=== PATIENT | male | born 1975 | race Hispanic/Latino ===

== ENCOUNTER 2018-01-19 15:57 | Inpatient (IN) | payer OTHER ==
[~2018-01-19] VITALS: Ht 170.2 cm; Wt 74.8 kg
[~2018-01-19 15:57] MED LIST: AEC81 PO; CYAN10009 PO; FOLI0.8C PO; METF-444 PO
[2018-01-19 16:26] LABS: BASOPHILS % (AUTO) 0.4 % (0.0-5.0); EOSINOPHILS % (AUTO) 1.8 % (0.0-8.0); HEMATOCRIT 42.6 % (42-54); LYMPHOCYTES % (AUTO) 24.6 % (21.0-51.0); MEAN CORPUSCULAR HEMOGLOBIN 31.4 pg (27.0-33.0); MEAN CORPUSCULAR HGB CONC 34.1 g/dL (32.0-36.0); MEAN CORPUSCULAR VOLUME 92.1 fL (79-99); MONOCYTES % (AUTO) 4.4 % (3.0-13.0); NEUTROPHILS % (AUTO) 68.8 % (40.0-77.0); PLATELET COUNT (AUTO) 375 K/uL (130-400); RED BLOOD CELL COUNT(AUTO) 4.63 MIL/uL (4.50-6.20); RED CELL DISTRIBUTION WIDTH 13.6 % (11.0-15.5); WHITE BLOOD COUNT (AUTO) 17.3 K/uL (4.8-10.8)
[2018-01-19 16:36] LABS: CREATININE 1.1 mg/dL (0.5-1.5); POTASSIUM 3.8 mmol/L (3.5-5.1)
[2018-01-19 16:42] LABS: ALBUMIN 4.6 g/dL (3.5-5.0); BILIRUBIN,TOTAL 0.6 mg/dL (0.2-1.0)
[2018-01-19 16:54] LABS: APPEARANCE,URINE Clear (CLEAR); BILIRUBIN,URINE Negative (NEGATIVE); COLOR,URINE Yellow (YELLOW); GLUCOSE, URINE (UA) 500 mg/dL (NEGATIVE); KETONES,URINE Trace mg/dL (NEGATIVE); LEUKOCYTE ESTERASE ,URINE Negative (NEGATIVE); NITRATE,URINE Negative (NEGATIVE); OCCULT BLOOD,URINE Negative (NEGATIVE); PROTEIN,URINE Trace (NEGATIVE)
[2018-01-19 17:02] LABS: AMPHET/METH SCREEN,URINE NEGATIVE (NEGATIVE); BARBITURATE SCREEN, URINE NEGATIVE (NEGATIVE); BENZODIAZEPINES SCREEN,URINE NEGATIVE (NEGATIVE); CANNABINOID SCREEN,URINE NEGATIVE (NEGATIVE); COCAINE SCREEN,URINE NEGATIVE (NEGATIVE); OPIATE SCREEN,URINE NEGATIVE (NEGATIVE); PHENCYCLIDINE SCREEN,URINE NEGATIVE (NEGATIVE)
[2018-01-19 17:03] LABS: BACTERIA,URINE Rare /HPF (None Seen); RBC,URINE 0-1 /HPF (0-1); WBC,URINE 0-1 /HPF (0-1)
[2018-01-19 17:04] LABS: MUCUS,URINE Few LPF (None Seen); SQUAMOUS EPITHELIAL CELL,UR Rare /HPF (0-2)
[2018-01-19] MEDS ORDERED: KETOROLAC TROMETHAMINE 30MG/ML ONE (18:39)
[2018-01-19] MEDS ORDERED: ONDANSETRON HCL 4 MG/2 ML VIAL IV PRN (19:00)
[2018-01-19] MEDS ORDERED: ACETAMINOPHEN 325 MG TAB PO PRN (19:00)
[2018-01-19 19:15] VITALS: BP 127/84
[2018-01-19] MEDS: SODIUM CHLORIDE 0.9% 1000ML 1,000 ML IV SCH (20:11)
[2018-01-19] MEDS: LEVOFLOXACIN 500 MG/D5W 100 ML 100 ML IV SCH (20:12)
[2018-01-19] MEDS: MORPHINE SULFATE 2 MG/ML 1ML SYG IV PRN (20:47)
[2018-01-19] MEDS: FAMOTIDINE/PF 20 MG/2 ML VIAL IV SCH (20:50)
[2018-01-19] MEDS ORDERED: METRONIDAZOLE 500 MG TABLET PO SCH (21:00)
[2018-01-19] MEDS: METRONIDAZOLE 500MG/100ML BAG 100 ML IV SCH (22:16)
[2018-01-19] MEDS ORDERED: DEXTROSE 50%-WATER 50 ML DISP.SYRIN IV PRN (23:15)
[2018-01-19] MEDS ORDERED: GLUCAGON 1MG KIT 1 MG ML IM PRN (23:15)
[2018-01-19 23:50] VITALS: BP 125/82
[2018-01-20] MEDS: MORPHINE SULFATE 2 MG/ML 1ML SYG IV PRN ×3 (01:25→12:35)
[2018-01-20 03:56] VITALS: BP 124/77
[2018-01-20 04:35] LABS: BASOPHILS % (AUTO) 0.4 % (0.0-5.0); EOSINOPHILS % (AUTO) 0.4 % (0.0-8.0); HEMATOCRIT 40.8 % (42-54); MEAN CORPUSCULAR HEMOGLOBIN 31.3 pg (27.0-33.0); MEAN CORPUSCULAR HGB CONC 33.9 g/dL (32.0-36.0); MEAN CORPUSCULAR VOLUME 92.3 fL (79-99); MONOCYTES % (AUTO) 8.2 % (3.0-13.0); PLATELET COUNT (AUTO) 390 K/uL (130-400); RED BLOOD CELL COUNT(AUTO) 4.42 MIL/uL (4.50-6.20); RED CELL DISTRIBUTION WIDTH 13.2 % (11.0-15.5); WHITE BLOOD COUNT (AUTO) 15.1 K/uL (4.8-10.8)
[2018-01-20 04:51] LABS: ALBUMIN 3.7 g/dL (3.5-5.0); BILIRUBIN,TOTAL 0.7 mg/dL (0.2-1.0); CREATININE 0.9 mg/dL (0.5-1.5); POTASSIUM 4.4 mmol/L (3.5-5.1); TOTAL PROTEIN, SERUM 6.9 g/dL (6.0-8.3)
[2018-01-20] MEDS: SODIUM CHLORIDE 0.9% 1000ML 1,000 ML IV SCH ×2 (04:59→08:35)
[2018-01-20] MEDS: METRONIDAZOLE 500MG/100ML BAG 100 ML IV SCH ×3 (05:37→22:31)
[2018-01-20] MEDS: INSULIN HUMULIN R 100 UNIT/ML 3ML SQ SCH ×4 (05:49→17:11)
[2018-01-20 07:30] VITALS: BP 136/86
[2018-01-20] MEDS: FAMOTIDINE/PF 20 MG/2 ML VIAL IV SCH ×2 (08:32→22:30)
[2018-01-20 11:30] VITALS: BP 132/82
[2018-01-20] MEDS: LACTATED RINGERS 1000ML 1,000 ML IV SCH ×3 (12:42→22:33)
[2018-01-20] MEDS: ENOXAPARIN SODIUM 30 MG/0.3 ML SQ SCH (14:17)
[2018-01-20 16:00] VITALS: BP 124/76
[2018-01-20] MEDS: MORPHINE SULFATE 2 MG/ML 1ML SYG IVP PRN (17:04)
[2018-01-20] MEDS: LEVOFLOXACIN 500 MG/D5W 100 ML 100 ML IV SCH (17:50)
[2018-01-20 20:00] VITALS: BP 126/74
[2018-01-21] VITALS: BP 118/75
[2018-01-21] MEDS: MORPHINE SULFATE 2 MG/ML 1ML SYG IVP PRN (00:43)
[2018-01-21 04:00] VITALS: BP 112/67
[2018-01-21] MEDS: LACTATED RINGERS 1000ML 1,000 ML IV SCH ×2 (04:47→12:25)
[2018-01-21] MEDS: METRONIDAZOLE 500MG/100ML BAG 100 ML IV SCH (05:38)
[2018-01-21] MEDS: INSULIN HUMULIN R 100 UNIT/ML 3ML SQ SCH ×3 (05:38→11:32)
[2018-01-21 06:21] LABS: HEMATOCRIT 37.7 % (42-54); MEAN CORPUSCULAR HEMOGLOBIN 31.9 pg (27.0-33.0); MEAN CORPUSCULAR HGB CONC 34.7 g/dL (32.0-36.0); MEAN CORPUSCULAR VOLUME 91.8 fL (79-99); NUCLEATED RED BLOOD CELLS 0.1 % (0.0-0.19); PLATELET COUNT (AUTO) 363 K/uL (130-400); RED BLOOD CELL COUNT(AUTO) 4.11 MIL/uL (4.50-6.20); RED CELL DISTRIBUTION WIDTH 13.1 % (11.0-15.5); WHITE BLOOD COUNT (AUTO) 12.1 K/uL (4.8-10.8)
[2018-01-21 06:31] LABS: CREATININE 0.8 mg/dL (0.5-1.5); POTASSIUM 3.7 mmol/L (3.5-5.1)
[2018-01-21] MEDS: FAMOTIDINE/PF 20 MG/2 ML VIAL IV SCH (07:48)
[2018-01-21] MEDS: ENOXAPARIN SODIUM 30 MG/0.3 ML SQ SCH (07:49)
[2018-01-21] MEDS ORDERED: CEFTRIAXONE SODIUM 1 GM IVP SCH (08:30)
[2018-01-21 08:49] VITALS: BP 108/71
[2018-01-21 12:10] VITALS: BP 128/86
[2018-01-21] MEDS ORDERED: CEFD300C3 PO (12:50)
== END 2018-01-21 15:55 | disposition home or self-care (01) | DRG 391 ==
LOC: EDH 15:57 → EDHIP 18:45 → OBSVTOIN 18:45 → 3DH 19:22
PROVIDERS: ADMIT Hospitalist; ATTEND Hospitalist
DX: K29.00 Acute gastritis without bleeding (principal); K85.90 Acute pancreatitis without necrosis or infection, unspecified; K86.3 Pseudocyst of pancreas; K86.1 Other chronic pancreatitis; E11.9 Type 2 diabetes mellitus without complications; Z90.49 Acquired absence of other specified parts of digestive tract; Z79.84 Long term (current) use of oral hypoglycemic drugs; Z83.3 Family history of diabetes mellitus; Z82.5 Family history of asthma and other chronic lower respiratory diseases; Z82.49 Family history of ischemic heart disease and other diseases of the circulatory system; Z82.3 Family history of stroke; Z82.0 Family history of epilepsy and other diseases of the nervous system
CPT/HCPCS: 36415; 74176; 80048; 80053; 80061; 80305; 81001; 82150; 82550; 82948; 83036; 83605; 83690; 84484; 85025; 85027; 93005; A4218; J0696; J1650; J1885; J1956; J3490; J7030; J7120

== ENCOUNTER 2018-02-20 06:05 | Day surgery (SDC) | payer OTHER ==
[~2018-02-20] VITALS: Ht 172.7 cm; Wt 71.4 kg
[~2018-02-20 06:05] MED LIST changes: -AEC81 PO; +CEFD300C3 PO; -CYAN10009 PO; -FOLI0.8C PO; +SODIUM CHLORIDE 0.9% 1000ML 1,000 ML IV ONE
[2018-02-20 06:54] VITALS: BP 113/69
[2018-02-20 07:03] LABS: AMYLASE 68 U/L (25-115); LIPASE 262 U/L (114-286)
[2018-02-20] MEDS ORDERED: ASPI-555 PO (07:21)
[2018-02-20] MEDS ORDERED: ATOR40TA71 PO (07:21)
[2018-02-20] MEDS ORDERED: PROPOFOL 10 MG/ML 20ML VIAL IV ONE ×3 (08:01→08:24)
[2018-02-20 08:45] VITALS: BP 94/47
[2018-02-20] MEDS ORDERED: CEFAZOLIN SODIUM 1 GM VIAL ONE (08:47)
[2018-02-20 08:50] VITALS: BP 89/45
[2018-02-20 08:55] VITALS: BP 108/66
== END 2018-02-20 09:54 | disposition home or self-care (01) ==
LOC: DAH 06:05
PROVIDERS: ATTEND Internal Medicine Gastroenterology
DX: K29.50 Unspecified chronic gastritis without bleeding (principal); K31.89 Other diseases of stomach and duodenum; K85.90 Acute pancreatitis without necrosis or infection, unspecified; K86.2 Cyst of pancreas; E11.9 Type 2 diabetes mellitus without complications; E78.5 Hyperlipidemia, unspecified; Z90.49 Acquired absence of other specified parts of digestive tract; Z79.84 Long term (current) use of oral hypoglycemic drugs; Z79.899 Other long term (current) drug therapy; Z98.890 Other specified postprocedural states
CPT/HCPCS: 36415; 43239; 43242; 82150; 82378; 82948 ×2; 83690 ×2; A4215; A4606; J0690; J2704 ×3; J7030; 43232

== ENCOUNTER → 2018-06-18 | Outpatient (CLI) | payer OTHER ==
[~2018-06-18] MED LIST changes: +ASPI-555 PO; +ATOR40TA71 PO; +IOHEXOL-350 75 ML VIAL IV ONE; -SODIUM CHLORIDE 0.9% 1000ML 1,000 ML IV ONE
== END | disposition home or self-care (01) ==
LOC: RAH 07:35
PROVIDERS: ATTEND Internal Medicine Gastroenterology
DX: R93.3 Abnormal findings on diagnostic imaging of other parts of digestive tract (principal); R10.13 Epigastric pain; M47.815 Spondylosis without myelopathy or radiculopathy, thoracolumbar region
CPT/HCPCS: 74170; Q9967

== ENCOUNTER → 2018-06-22 | Outpatient (CLI) | payer OTHER ==
[~2018-06-22] MED LIST changes: -IOHEXOL-350 75 ML VIAL IV ONE
[2018-06-22 10:22] LABS: BASOPHILS % (AUTO) 0.8 % (0.0-5.0); EOSINOPHILS % (AUTO) 4.7 % (0.0-8.0); LYMPHOCYTES % (AUTO) 33.6 % (21.0-51.0); MEAN CORPUSCULAR HEMOGLOBIN 31.1 pg (27.0-33.0); MEAN CORPUSCULAR HGB CONC 33.5 g/dL (32.0-36.0); MEAN CORPUSCULAR VOLUME 92.8 fL (79-99); MONOCYTES % (AUTO) 10.1 % (3.0-13.0); NEUTROPHILS % (AUTO) 50.8 % (40.0-77.0); PLATELET COUNT (AUTO) 370 K/uL (130-400); RED BLOOD CELL COUNT(AUTO) 4.63 MIL/uL (4.50-6.20); RED CELL DISTRIBUTION WIDTH 13.5 % (11.0-15.5); WHITE BLOOD COUNT (AUTO) 7.3 K/uL (4.8-10.8)
[2018-06-22 10:35] LABS: ALBUMIN 4.5 g/dL (3.5-5.0); CREATININE 0.9 mg/dL (0.5-1.5); POTASSIUM 4.5 mmol/L (3.5-5.1); TOTAL PROTEIN, SERUM 7.9 g/dL (6.0-8.3)
== END | disposition home or self-care (01) ==
LOC: LAB 09:24
PROVIDERS: ATTEND Physician Assistant Medical
DX: E78.5 Hyperlipidemia, unspecified (principal); K85.90 Acute pancreatitis without necrosis or infection, unspecified
CPT/HCPCS: 36415; 80053; 80061; 82150; 82784; 83690; 85025

== ENCOUNTER 2018-08-19 07:11 | Inpatient (IN) | payer OTHER ==
[~2018-08-19] VITALS: Ht 170.2 cm; Wt 66.7 kg
[2018-08-19] MEDS ORDERED: MORPHINE SULFATE 4 MG/1ML SYG ONE ×2 (08:01→15:49)
[2018-08-19] MEDS ORDERED: ONDANSETRON HCL 4 MG/2 ML VIAL ONE ×2 (08:01→15:48)
[2018-08-19 08:07] LABS: BASOPHILS % (AUTO) 0.4 % (0.0-5.0); EOSINOPHILS % (AUTO) 3.6 % (0.0-8.0); HEMATOCRIT 41.9 % (42-54); LYMPHOCYTES % (AUTO) 23.8 % (21.0-51.0); MEAN CORPUSCULAR HEMOGLOBIN 31.2 pg (27.0-33.0); MEAN CORPUSCULAR HGB CONC 33.4 g/dL (32.0-36.0); MEAN CORPUSCULAR VOLUME 93.5 fL (79-99); MONOCYTES % (AUTO) 4.8 % (3.0-13.0); NEUTROPHILS % (AUTO) 67.4 % (40.0-77.0); NUCLEATED RED BLOOD CELLS 0.1 % (0.0-0.19); PLATELET COUNT (AUTO) 365 K/uL (130-400); RED BLOOD CELL COUNT(AUTO) 4.48 MIL/uL (4.50-6.20); RED CELL DISTRIBUTION WIDTH 13.8 % (11.0-15.5); WHITE BLOOD COUNT (AUTO) 15.1 K/uL (4.8-10.8)
[2018-08-19 08:13] LABS: CREATININE 0.9 mg/dL (0.5-1.5); POTASSIUM 4.9 mmol/L (3.5-5.1)
[2018-08-19 08:19] LABS: ALBUMIN 4.1 g/dL (3.5-5.0); BILIRUBIN,TOTAL 0.4 mg/dL (0.2-1.0); TOTAL PROTEIN, SERUM 7.1 g/dL (6.0-8.3)
[2018-08-19] MEDS ORDERED: SODIUM CHLORIDE 0.9% 1000ML 1,000 ML IV ONE ×2 (08:26→14:56)
[2018-08-19 09:55] LABS: APPEARANCE,URINE Clear (CLEAR); BILIRUBIN,URINE Negative (NEGATIVE); COLOR,URINE Yellow (YELLOW); GLUCOSE, URINE (UA) TRACE mg/dL (NEGATIVE); KETONES,URINE Negative (NEGATIVE); LEUKOCYTE ESTERASE ,URINE Negative (NEGATIVE); NITRATE,URINE Negative (NEGATIVE); OCCULT BLOOD,URINE Negative (NEGATIVE); PH,URINE 5.5 (5.0-8.0); PROTEIN,URINE Negative (NEGATIVE)
[2018-08-19 10:24] LABS: BACTERIA,URINE Rare /HPF (None Seen); MUCUS,URINE Rare LPF (None Seen); RBC,URINE None Seen /HPF (0-1); SQUAMOUS EPITHELIAL CELL,UR Rare /HPF (0-2); WBC,URINE None Seen /HPF (0-1)
[2018-08-19] MEDS: SODIUM CHLORIDE 0.9% 1000ML 1,000 ML IV SCH ×2 (15:00→23:37)
[2018-08-19] MEDS ORDERED: ONDANSETRON HCL 4 MG/2 ML VIAL IVP PRN (15:00)
[2018-08-19] MEDS: ENOXAPARIN SODIUM 40 MG/0.4 ML SYRINGE SQ SCH (15:08)
[2018-08-19] MEDS ORDERED: DiphenhydrAMINE HCL 50 MG/ML VIAL IVP PRN (15:15)
[2018-08-19] MEDS ORDERED: ENOXAPARIN SODIUM 40 MG/0.4 ML SYRINGE SQ ONE (15:48)
[2018-08-19] MEDS: INSULIN HUMULIN R 100 UNIT/ML 3ML SQ SCH ×2 (18:00→23:36)
[2018-08-19 22:52] VITALS: BP 121/71
[2018-08-19 23:16] VITALS: BP 122/74
[2018-08-19] MEDS: FAMOTIDINE/PF 20 MG/2 ML VIAL IV SCH (23:53)
[2018-08-20] MEDS ORDERED: AEC81 PO (00:17)
[2018-08-20] MEDS ORDERED: METF-444 PO ×2 (00:17)
[2018-08-20] MEDS: MORPHINE SULFATE 4 MG/1ML SYG IVP PRN ×2 (00:28→10:38)
[2018-08-20 03:40] VITALS: BP 96/61
[2018-08-20] MEDS: INSULIN HUMULIN R 100 UNIT/ML 3ML SQ SCH ×3 (06:00→18:00)
[2018-08-20 06:47] LABS: HEMATOCRIT 39.7 % (42-54); MEAN CORPUSCULAR HEMOGLOBIN 32.1 pg (27.0-33.0); MEAN CORPUSCULAR HGB CONC 34.1 g/dL (32.0-36.0); NUCLEATED RED BLOOD CELLS 0.1 % (0.0-0.19); PLATELET COUNT (AUTO) 331 K/uL (130-400); RED BLOOD CELL COUNT(AUTO) 4.22 MIL/uL (4.50-6.20); WHITE BLOOD COUNT (AUTO) 9.7 K/uL (4.8-10.8)
[2018-08-20] MEDS: SODIUM CHLORIDE 0.9% 1000ML 1,000 ML IV SCH ×3 (06:48→22:09)
[2018-08-20 07:08] LABS: ALBUMIN 3.5 g/dL (3.5-5.0); BILIRUBIN,TOTAL 0.7 mg/dL (0.2-1.0); CREATININE 0.8 mg/dL (0.5-1.5); POTASSIUM 3.6 mmol/L (3.5-5.1); TOTAL PROTEIN, SERUM 6.3 g/dL (6.0-8.3)
[2018-08-20 07:56] VITALS: BP 106/71
[2018-08-20] MEDS: ENOXAPARIN SODIUM 40 MG/0.4 ML SYRINGE SQ SCH (09:33)
[2018-08-20] MEDS: FAMOTIDINE/PF 20 MG/2 ML VIAL IV SCH ×2 (09:33→22:09)
[2018-08-20 11:29] VITALS: BP 114/67
[2018-08-20 16:00] VITALS: BP 105/64
--- NOTE | 2018-08-20 19:33 | NUR ---
cm note met with patient and states resides at home with spouse and 4 children. , independent and active. 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 has no dme, no provider services. states no dc needs. dc plan is back to home. Addendum: 08/20/18 at 1934 by ALDO PECK CM Amended: Links added.
[2018-08-20] MEDS ORDERED: GLUCAGON 1MG KIT 1 MG ML IM PRN (19:45)
[2018-08-20] MEDS ORDERED: DEXTROSE 50%-WATER 50 ML DISP.SYRIN IV PRN (19:45)
[2018-08-20 20:00] VITALS: BP 105/61
[2018-08-21] VITALS: BP 94/56
[2018-08-21 04:00] VITALS: BP 106/67
[2018-08-21 05:16] LABS: BASOPHILS % (AUTO) 0.8 % (0.0-5.0); EOSINOPHILS % (AUTO) 5.5 % (0.0-8.0); HEMATOCRIT 38.9 % (42-54); LYMPHOCYTES % (AUTO) 32.1 % (21.0-51.0); MEAN CORPUSCULAR HEMOGLOBIN 31.6 pg (27.0-33.0); MEAN CORPUSCULAR HGB CONC 33.9 g/dL (32.0-36.0); MEAN CORPUSCULAR VOLUME 93.2 fL (79-99); MONOCYTES % (AUTO) 7.2 % (3.0-13.0); NEUTROPHILS % (AUTO) 54.4 % (40.0-77.0); PLATELET COUNT (AUTO) 378 K/uL (130-400); RED BLOOD CELL COUNT(AUTO) 4.18 MIL/uL (4.50-6.20); RED CELL DISTRIBUTION WIDTH 13.7 % (11.0-15.5); WHITE BLOOD COUNT (AUTO) 8.6 K/uL (4.8-10.8)
[2018-08-21 05:34] LABS: CREATININE 0.8 mg/dL (0.5-1.5); POTASSIUM 4.1 mmol/L (3.5-5.1)
[2018-08-21] MEDS: INSULIN HUMULIN R 100 UNIT/ML 3ML SQ SCH ×5 (06:00→20:47)
[2018-08-21] MEDS: SODIUM CHLORIDE 0.9% 1000ML 1,000 ML IV SCH ×2 (06:36→15:47)
[2018-08-21 08:00] VITALS: BP 122/76
[2018-08-21] MEDS: FAMOTIDINE/PF 20 MG/2 ML VIAL IV SCH ×2 (10:10→20:47)
[2018-08-21] MEDS: ENOXAPARIN SODIUM 40 MG/0.4 ML SYRINGE SQ SCH (10:11)
[2018-08-21 11:38] VITALS: BP 122/71
--- NOTE | 2018-08-21 12:39 | NUR ---
re; bs of 54, as per salvage worker chicas start pt on clear liquids.
[2018-08-21] MEDS ORDERED: PHARMACY COMMUNICATION MISC SCH (15:00)
[2018-08-21 15:44] VITALS: BP 121/77
--- NOTE | 2018-08-21 16:31 | NUR ---
Diet education RD Notification for Diet education regarding Pancreatitis diet. RD reviewed Dietary recommendations for Pancreatitis and Diabetes, however Pt denies need as he has received in the past. Pt admits to having enchiladas with a lot of cheese that caused acute pancreatitis episode. Pt however with request for information for gaining weight as he has had weight loss from diet modification of cutting out certain foods from diet. RD provided and reviewed High Calorie foods education materials. Pt verbalized understanding. Pt encouraged to notify as questions and concerns arise. Addendum: 08/21/18 at [address] RD Amended: Links added.
[2018-08-21 20:00] VITALS: BP 122/78
[2018-08-22] VITALS: BP 109/61
[2018-08-22 04:00] VITALS: BP 115/70
[2018-08-22 04:50] LABS: HEMATOCRIT 39.2 % (42-54); MEAN CORPUSCULAR HGB CONC 34.3 g/dL (32.0-36.0); NUCLEATED RED BLOOD CELLS 0.1 % (0.0-0.19); PLATELET COUNT (AUTO) 335 K/uL (130-400); RED BLOOD CELL COUNT(AUTO) 4.22 MIL/uL (4.50-6.20); RED CELL DISTRIBUTION WIDTH 13.7 % (11.0-15.5)
[2018-08-22 04:58] LABS: CREATININE 0.8 mg/dL (0.5-1.5); POTASSIUM 4.2 mmol/L (3.5-5.1)
[2018-08-22] MEDS: INSULIN HUMULIN R 100 UNIT/ML 3ML SQ SCH ×2 (05:34→11:30)
[2018-08-22] MEDS: SODIUM CHLORIDE 0.9% 1000ML 1,000 ML IV SCH (05:34)
[2018-08-22 07:30] VITALS: BP 116/74
[2018-08-22] MEDS: FAMOTIDINE/PF 20 MG/2 ML VIAL IV SCH (08:56)
[2018-08-22] MEDS: ENOXAPARIN SODIUM 40 MG/0.4 ML SYRINGE SQ SCH (08:56)
[2018-08-22 11:00] VITALS: BP 117/76
--- NOTE | 2018-08-22 14:10 | NUR ---
INSTRUCTIONS DISCHARGE INSTRUCTIONS GIVEN TO PATIENT USING TEACH BACK. IV TO LEFT FOREARM REMOVED WITH TIP INTACT. DIRECT PRESSURE APPLIED UNTIL BLEEDING CONTROLLED THEN SITE COVERED WITH GAUZE AND SECURED WITH TAPE. F/U APPOINTMENT MADE. NO NEW PRESCRIPTIONS. NO QUESTIONS OR CONCERNS VOICED. PENDING RIDE HOME.
== END 2018-08-22 14:40 | disposition home or self-care (01) | DRG 440 ==
LOC: EDH 07:11 → EDHIP 13:42 → 3DH 22:37
PROVIDERS: ADMIT Family Medicine; ATTEND Family Medicine
DX: K85.90 Acute pancreatitis without necrosis or infection, unspecified (principal); E11.9 Type 2 diabetes mellitus without complications; E78.00 Pure hypercholesterolemia, unspecified; Z90.49 Acquired absence of other specified parts of digestive tract; Z90.81 Acquired absence of spleen; Z82.3 Family history of stroke; Z82.0 Family history of epilepsy and other diseases of the nervous system; Z83.3 Family history of diabetes mellitus; Z82.5 Family history of asthma and other chronic lower respiratory diseases; Z82.49 Family history of ischemic heart disease and other diseases of the circulatory system
CPT/HCPCS: 36415; 80048; 80053; 80061; 81001; 82150; 82948; 83690; 85025; 85027; 93005; G0378; J1650; J2270; J2405; J3490; J7030; J7070

== ENCOUNTER → 2018-10-26 | Outpatient (CLI) | payer OTHER ==
[~2018-10-26] MED LIST changes: +AEC81 PO; -ASPI-555 PO; -CEFD300C3 PO
[2018-10-26 10:14] LABS: BASOPHILS % (AUTO) 1.1 % (0.0-5.0); EOSINOPHILS % (AUTO) 5.9 % (0.0-8.0); LYMPHOCYTES % (AUTO) 41.8 % (21.0-51.0); MEAN CORPUSCULAR HEMOGLOBIN 31.7 pg (27.0-33.0); MEAN CORPUSCULAR HGB CONC 33.3 g/dL (32.0-36.0); MEAN CORPUSCULAR VOLUME 95.2 fL (79-99); MONOCYTES % (AUTO) 9.4 % (3.0-13.0); NEUTROPHILS % (AUTO) 41.8 % (40.0-77.0); PLATELET COUNT (AUTO) 340 K/uL (130-400); RED BLOOD CELL COUNT(AUTO) 4.52 MIL/uL (4.50-6.20); RED CELL DISTRIBUTION WIDTH 13.2 % (11.0-15.5); WHITE BLOOD COUNT (AUTO) 7.1 K/uL (4.8-10.8)
[2018-10-26 10:26] LABS: ALBUMIN 4.2 g/dL (3.5-5.0); BILIRUBIN,TOTAL 0.7 mg/dL (0.2-1.0); CREATININE 0.9 mg/dL (0.5-1.5); POTASSIUM 4.4 mmol/L (3.5-5.1); TOTAL PROTEIN, SERUM 7.4 g/dL (6.0-8.3)
== END | disposition home or self-care (01) ==
LOC: LAB 09:50
PROVIDERS: ATTEND Internal Medicine
DX: K85.90 Acute pancreatitis without necrosis or infection, unspecified (principal)
CPT/HCPCS: 36415; 80053; 82150; 82784; 83690; 85025

== ENCOUNTER → 2018-11-20 | Outpatient (CLI) | payer OTHER ==
[~2018-11-20] MED LIST changes: +GADODIAMIDE 10 MMOL/20 ML VIAL IV ONE
== END | disposition home or self-care (01) ==
LOC: RAH 08:38
PROVIDERS: ATTEND Internal Medicine
DX: K86.2 Cyst of pancreas (principal); Z90.49 Acquired absence of other specified parts of digestive tract
CPT/HCPCS: 74183; A9579

== ENCOUNTER 2018-12-17 17:17 | Inpatient (IN) | payer OTHER ==
[~2018-12-17] VITALS: Ht 170.2 cm; Wt 70.3 kg
[~2018-12-17 17:17] MED LIST changes: -GADODIAMIDE 10 MMOL/20 ML VIAL IV ONE
[2018-12-17] MEDS ORDERED: ONDANSETRON HCL 4 MG/2 ML VIAL ONE (17:38)
[2018-12-17 17:58] LABS: BASOPHILS % (AUTO) 0.3 % (0.0-5.0); EOSINOPHILS % (AUTO) 2.4 % (0.0-8.0); LYMPHOCYTES % (AUTO) 18.6 % (21.0-51.0); MEAN CORPUSCULAR HEMOGLOBIN 31.9 pg (27.0-33.0); MEAN CORPUSCULAR HGB CONC 33.8 g/dL (32.0-36.0); MEAN CORPUSCULAR VOLUME 94.4 fL (79-99); MONOCYTES % (AUTO) 4.9 % (3.0-13.0); NEUTROPHILS % (AUTO) 73.8 % (40.0-77.0); NUCLEATED RED BLOOD CELLS 0.1 % (0.0-0.19); PLATELET COUNT (AUTO) 362 K/uL (130-400); RED BLOOD CELL COUNT(AUTO) 4.45 MIL/uL (4.50-6.20); RED CELL DISTRIBUTION WIDTH 13.3 % (11.0-15.5); WHITE BLOOD COUNT (AUTO) 18.2 K/uL (4.8-10.8)
[2018-12-17 18:09] LABS: CREATININE 1.1 mg/dL (0.5-1.5); POTASSIUM 4.2 mmol/L (3.5-5.1)
[2018-12-17 18:14] LABS: ALBUMIN 4.5 g/dL (3.5-5.0); BILIRUBIN,TOTAL 0.4 mg/dL (0.2-1.0); TOTAL PROTEIN, SERUM 7.6 g/dL (6.0-8.3)
[2018-12-17] MEDS ORDERED: FAMOTIDINE/PF 20 MG/2 ML VIAL IV ONE (18:59)
[2018-12-17] MEDS ORDERED: KETOROLAC TROMETHAMINE 30MG/ML ONE (18:59)
[2018-12-17] MEDS ORDERED: SODIUM CHLORIDE 0.9% 1000ML 1,000 ML IV ONE (19:00)
[2018-12-17] MEDS ORDERED: ZOSYN 3.375GM+NS 50ML 50 ML IV ONE (21:13)
[2018-12-18] MEDS ORDERED: SODIUM CHLORIDE 0.9% 1000ML 1,000 ML IV ONE (00:19)
[2018-12-18] MEDS ORDERED: MORPHINE SULFATE 4 MG/1ML SYG ONE ×2 (00:21→08:31)
[2018-12-18 02:55] VITALS: BP 147/92
[2018-12-18] MEDS: MORPHINE SULFATE 5 MG/ML VIAL IVP PRN ×2 (04:35→08:33)
[2018-12-18 04:52] LABS: HEMATOCRIT 39.6 % (42-54); MEAN CORPUSCULAR HEMOGLOBIN 32.3 pg (27.0-33.0); MEAN CORPUSCULAR HGB CONC 34.3 g/dL (32.0-36.0); MEAN CORPUSCULAR VOLUME 94.3 fL (79-99); NUCLEATED RED BLOOD CELLS 0.1 % (0.0-0.19); PLATELET COUNT (AUTO) 331 K/uL (130-400); RED CELL DISTRIBUTION WIDTH 13.3 % (11.0-15.5)
[2018-12-18 04:54] LABS: ALBUMIN 3.6 g/dL (3.5-5.0); BILIRUBIN,TOTAL 0.8 mg/dL (0.2-1.0); CREATININE 0.9 mg/dL (0.5-1.5); POTASSIUM 4.5 mmol/L (3.5-5.1); TOTAL PROTEIN, SERUM 6.5 g/dL (6.0-8.3)
[2018-12-18 04:58] LABS: BAND NEUTROPHILS % (MANUAL) 1 % (0-2); BASOPHILS % (MANUAL) 1 % (0-2); LYMPHOCYTES % (MANUAL) 13 % (22-44); MONOCYTES % (MANUAL) 2 % (2-9); SEGMENTED NEUTROPHILS % 83 % (40-70)
[2018-12-18 04:59] LABS: MAN.DIFF COMMENT-IMPRESSION MANUAL DIFFERENTIAL
[2018-12-18 05:00] LABS: PLATELET MORPHOLOGY COMMENT ADEQUATE
[2018-12-18 07:30] VITALS: BP 143/94
[2018-12-18] MEDS: SODIUM CHLORIDE 0.9% 1000ML 1,000 ML IV SCH ×3 (08:00→21:52)
[2018-12-18] MEDS: ZOSYN 3.375GM+NS 50ML 50 ML IV SCH ×3 (08:38→21:52)
[2018-12-18 11:00] VITALS: BP 128/79
[2018-12-18 12:24] LABS: CHOLESTEROL 111 mg/dL (<200); HDL CHOLESTEROL 96 mg/dL (29-71); LDL DIRECT 54 mg/dL (0-99); TRIGLYCERIDES 52 mg/dL (30-200)
[2018-12-18 16:00] VITALS: BP 133/79
--- NOTE | 2018-12-18 17:07 | NUR ---
INITIAL MET W PT AND SPOUSE, PT IS INDP, EMPLOYED, YOUNG , NO DME, DM X 4 YEARS, MULTIPLE BOUTS OF PANCREATITIS, SPOUSE & PATIENT FRUSTRATED; OFFERED DM MANAGEMENT CLINIC INFO ([facility]) BUT PT AND SPOUSE DECLINED, STATES THEIR MD HELPS MANAGE THE SUGARS. WILL REVISIT, NO DC NEEDS Addendum: 12/19/18 at 0853 by MITCH KATZ RN CM Amended: Links added.
[2018-12-18] MEDS ORDERED: ONDANSETRON HCL 4 MG/2 ML VIAL IVP PRN (18:45)
[2018-12-18] MEDS ORDERED: ACETAMINOPHEN 650 MG SUPPOSITORY RC PRN (18:45)
[2018-12-18] MEDS ORDERED: ACETAMINOPHEN 120 MG SUPPOSITORY RC PRN (18:45)
[2018-12-18 20:00] VITALS: BP 122/78
[2018-12-18] MEDS ORDERED: MORPHINE SULFATE 2 MG/ML 1ML SYG IM PRN (20:45)
[2018-12-18] MEDS: FAMOTIDINE/PF 20 MG/2 ML VIAL IV SCH (21:52)
[2018-12-19] VITALS: BP 112/76
[2018-12-19 04:00] VITALS: BP 110/72
[2018-12-19] MEDS: SODIUM CHLORIDE 0.9% 1000ML 1,000 ML IV SCH ×3 (04:10→15:05)
[2018-12-19 06:14] LABS: HEMATOCRIT 39.1 % (42-54); MEAN CORPUSCULAR HEMOGLOBIN 32.3 pg (27.0-33.0); MEAN CORPUSCULAR HGB CONC 34.1 g/dL (32.0-36.0); MEAN CORPUSCULAR VOLUME 94.9 fL (79-99); PLATELET COUNT (AUTO) 337 K/uL (130-400); RED BLOOD CELL COUNT(AUTO) 4.12 MIL/uL (4.50-6.20); RED CELL DISTRIBUTION WIDTH 13.5 % (11.0-15.5); WHITE BLOOD COUNT (AUTO) 10.4 K/uL (4.8-10.8)
[2018-12-19] MEDS: ZOSYN 3.375GM+NS 50ML 50 ML IV SCH ×3 (06:20→22:50)
[2018-12-19 06:31] LABS: ALBUMIN 3.3 g/dL (3.5-5.0); BILIRUBIN,TOTAL 1.1 mg/dL (0.2-1.0); CREATININE 0.9 mg/dL (0.5-1.5); POTASSIUM 3.7 mmol/L (3.5-5.1); TOTAL PROTEIN, SERUM 6.1 g/dL (6.0-8.3)
[2018-12-19 07:46] VITALS: BP 113/70
[2018-12-19] MEDS: FAMOTIDINE/PF 20 MG/2 ML VIAL IV SCH ×2 (09:11→20:14)
[2018-12-19 11:00] VITALS: BP 124/75
[2018-12-19 16:00] VITALS: BP 132/80
[2018-12-19 19:52] VITALS: BP 115/76
[2018-12-19 21:29] LABS: APPEARANCE,URINE Clear (CLEAR); BILIRUBIN,URINE Negative (NEGATIVE); COLOR,URINE Yellow (YELLOW); GLUCOSE, URINE (UA) Negative (NEGATIVE); KETONES,URINE Negative (NEGATIVE); LEUKOCYTE ESTERASE ,URINE Negative (NEGATIVE); NITRATE,URINE Negative (NEGATIVE); OCCULT BLOOD,URINE Negative (NEGATIVE); PROTEIN,URINE Negative (NEGATIVE)
[2018-12-19 21:37] LABS: AMPHET/METH SCREEN,URINE NEGATIVE (NEGATIVE); BARBITURATE SCREEN, URINE NEGATIVE (NEGATIVE); BENZODIAZEPINES SCREEN,URINE NEGATIVE (NEGATIVE); CANNABINOID SCREEN,URINE NEGATIVE (NEGATIVE); COCAINE SCREEN,URINE NEGATIVE (NEGATIVE); OPIATE SCREEN,URINE NEGATIVE (NEGATIVE); PHENCYCLIDINE SCREEN,URINE NEGATIVE (NEGATIVE)
[2018-12-20 00:21] VITALS: BP 106/61
[2018-12-20 03:50] VITALS: BP 102/60
[2018-12-20 05:34] LABS: BASOPHILS % (AUTO) 0.9 % (0.0-5.0); EOSINOPHILS % (AUTO) 7.8 % (0.0-8.0); HEMATOCRIT 36.4 % (42-54); LYMPHOCYTES % (AUTO) 36.9 % (21.0-51.0); MEAN CORPUSCULAR HEMOGLOBIN 32.5 pg (27.0-33.0); MEAN CORPUSCULAR HGB CONC 34.7 g/dL (32.0-36.0); MEAN CORPUSCULAR VOLUME 93.7 fL (79-99); MONOCYTES % (AUTO) 11.7 % (3.0-13.0); NEUTROPHILS % (AUTO) 42.7 % (40.0-77.0); PLATELET COUNT (AUTO) 307 K/uL (130-400); RED BLOOD CELL COUNT(AUTO) 3.88 MIL/uL (4.50-6.20); RED CELL DISTRIBUTION WIDTH 13.7 % (11.0-15.5)
[2018-12-20 06:02] LABS: MAGNESIUM 1.8 mg/dL (1.80-2.40); PHOSPHORUS 3.8 mg/dL (2.5-4.9); POTASSIUM 3.7 mmol/L (3.5-5.1)
[2018-12-20] MEDS: ZOSYN 3.375GM+NS 50ML 50 ML IV SCH ×2 (06:47→14:00)
[2018-12-20] MEDS: SODIUM CHLORIDE 0.9% 1000ML 1,000 ML IV SCH ×2 (06:48→12:55)
[2018-12-20 07:30] VITALS: BP 119/76
[2018-12-20] MEDS: FAMOTIDINE/PF 20 MG/2 ML VIAL IV SCH (09:04)
[2018-12-20 11:00] VITALS: BP 119/69
[2018-12-20 11:41] LABS: AMYLASE 63 U/L (25-115); LIPASE 196 U/L (114-286)
== END 2018-12-20 16:05 | disposition home or self-care (01) | DRG 440 ==
LOC: EDH 17:17 → EDHIP 21:00 → OBSVTOIN 21:00 → 4CH 12-18 02:01
PROVIDERS: ADMIT Internal Medicine Pulmonary Disease; ATTEND Internal Medicine Pulmonary Disease
DX: K85.90 Acute pancreatitis without necrosis or infection, unspecified (principal); K86.1 Other chronic pancreatitis; Z90.81 Acquired absence of spleen; Z90.49 Acquired absence of other specified parts of digestive tract
CPT/HCPCS: 36415; 71045; 74176; 74181; 76700; 80048; 80053; 80061; 80305; 81003; 82150; 82550; 82948; 83690; 83735; 84100; 84484; 85025; 85027; 93005; G0378; J1885; J2270; J2405; J2543; J3490; J7030

== ENCOUNTER 2019-08-14 18:45 | Inpatient (IN) | payer OTHER ==
[~2019-08-14] VITALS: Ht 170.2 cm; Wt 74.9 kg
[~2019-08-14 18:45] MED LIST changes: -AEC81 PO
[2019-08-14] MEDS ORDERED: SODIUM CHLORIDE 0.9% 1000ML 1,000 ML IV ONE (18:55)
[2019-08-14] MEDS ORDERED: ONDANSETRON HCL 4 MG/2 ML VIAL ONE (18:55)
[2019-08-14] MEDS ORDERED: MORPHINE SULFATE 5 MG/ML VIAL ONE (18:55)
[2019-08-14] MEDS ORDERED: HYDROMORPHONE 1 MG/1 ML AMP ONE (19:21)
[2019-08-14 19:23] LABS: BASOPHILS % (AUTO) 0.6 % (0.0-5.0); EOSINOPHILS % (AUTO) 4.7 % (0.0-8.0); HEMATOCRIT 41.3 % (42-54); LYMPHOCYTES % (AUTO) 51.4 % (21.0-51.0); MEAN CORPUSCULAR HEMOGLOBIN 31.7 pg (27.0-33.0); MEAN CORPUSCULAR HGB CONC 34.9 g/dL (32.0-36.0); MONOCYTES % (AUTO) 7.2 % (3.0-13.0); NEUTROPHILS % (AUTO) 35.8 % (40.0-77.0); PLATELET COUNT (AUTO) 392 K/uL (130-400); RED BLOOD CELL COUNT(AUTO) 4.54 MIL/uL (4.50-6.20); RED CELL DISTRIBUTION WIDTH 12.6 % (11.0-15.5); WHITE BLOOD COUNT (AUTO) 14.6 K/uL (4.8-10.8)
[2019-08-14 19:51] LABS: CREATININE 1.5 mg/dL (0.5-1.5); POTASSIUM 3.2 mmol/L (3.5-5.1)
[2019-08-14 20:00] LABS: ALBUMIN 4.6 g/dL (3.5-5.0); BILIRUBIN,TOTAL 0.3 mg/dL (0.2-1.0); TOTAL PROTEIN, SERUM 7.7 g/dL (6.0-8.3)
[2019-08-14] MEDS: SODIUM CHLORIDE 0.9% 1000ML 1,000 ML IV SCH (21:24)
[2019-08-14] MEDS ORDERED: ACETAMINOPHEN 325 MG TAB PO PRN (21:30)
[2019-08-14] MEDS ORDERED: LACTULOSE 20 GM/30 ML UDCUP PO PRN (21:30)
[2019-08-14] MEDS ORDERED: LIDOCAINE HCL-MPF 1% 2ML VIAL IV PRN (21:30)
[2019-08-14] MEDS ORDERED: MORPHINE SULFATE 4 MG/1ML SYG ONE (21:47)
[2019-08-14 21:55] LABS: HEMOGLOBIN A1C 6.8 % (4.0-6.0)
[2019-08-14 22:05] LABS: CHOLESTEROL 144 mg/dL (<200); HDL CHOLESTEROL 93 mg/dL (29-71); LDL DIRECT 83 mg/dL (0-99); TRIGLYCERIDES 171 mg/dL (30-200)
[2019-08-15] MEDS ORDERED: LIDOCAINE HCL-MPF 1% 2ML VIAL ONE (00:30)
[2019-08-15] MEDS ORDERED: POTASSIUM CHLORIDE 20MEQ/100ML 100 ML IV ONE (00:30)
[2019-08-15] MEDS ORDERED: HYDROMORPHONE 1 MG/1 ML AMP ONE ×2 (01:13→05:13)
[2019-08-15 02:40] LABS: APPEARANCE,URINE Clear (CLEAR); BILIRUBIN,URINE Negative (NEGATIVE); COLOR,URINE Yellow (YELLOW); GLUCOSE, URINE (UA) >=1000 mg/dL (NEGATIVE); KETONES,URINE 40 mg/dL (NEGATIVE); LEUKOCYTE ESTERASE ,URINE Negative (NEGATIVE); NITRATE,URINE Negative (NEGATIVE); OCCULT BLOOD,URINE Negative (NEGATIVE); PROTEIN,URINE Negative (NEGATIVE)
[2019-08-15 02:53] LABS: BACTERIA,URINE Rare /HPF (None Seen); RBC,URINE 0-1 /HPF (0-1); WBC,URINE 0-1 /HPF (0-1)
[2019-08-15 02:54] LABS: MUCUS,URINE Rare LPF (None Seen); SQUAMOUS EPITHELIAL CELL,UR 0-2 /HPF (0-2)
[2019-08-15] MEDS ORDERED: MORPHINE SULFATE 4 MG/1ML SYG ONE (03:21)
[2019-08-15 04:41] LABS: BASOPHILS % (AUTO) 0.2 % (0.0-5.0); HEMATOCRIT 42.9 % (42-54); MEAN CORPUSCULAR HEMOGLOBIN 31.2 pg (27.0-33.0); MEAN CORPUSCULAR VOLUME 91.7 fL (79-99); MONOCYTES % (AUTO) 3.4 % (3.0-13.0); PLATELET COUNT (AUTO) 274 K/uL (130-400); RED BLOOD CELL COUNT(AUTO) 4.68 MIL/uL (4.50-6.20); WHITE BLOOD COUNT (AUTO) 17.8 K/uL (4.8-10.8)
[2019-08-15 04:57] LABS: CREATININE 0.9 mg/dL (0.5-1.5); POTASSIUM 4.4 mmol/L (3.5-5.1)
[2019-08-15] MEDS: SODIUM CHLORIDE 0.9% 1000ML 1,000 ML IV SCH ×3 (05:24→16:59)
--- NOTE | 2019-08-15 08:45 | NUR ---
ARRIVAL TO FLOOR PT IS AAOX3 DENIES CP DENIES SOB. STATES HE FEELS NAUSEA, NO EMESIS NOTED. ARRIVED WITH ORDERS, AND ORDERS ARE CARRIED OUT. CALL LIGHT WITHIN REACH.
[2019-08-15] MEDS ORDERED: ONDANSETRON HCL 4 MG/2 ML VIAL ONE (08:48)
[2019-08-15] MEDS: ENOXAPARIN SODIUM 40 MG/0.4 ML SYRINGE SQ SCH (08:58)
[2019-08-15] MEDS: FAMOTIDINE/PF 20 MG/2 ML VIAL IV SCH ×2 (08:58→21:18)
[2019-08-15] MEDS: INSULIN HUMULIN R 100 UNIT/ML 3ML SQ SCH ×4 (08:59→21:00)
--- NOTE | 2019-08-15 09:00 | NUR ---
DR MARTINEZ MADE AWARE OF PT ARRIVAL TO FLOOR
[2019-08-15] MEDS: MORPHINE SULFATE 4 MG/1ML SYG IV PRN ×4 (09:07→21:19)
[2019-08-15 09:29] VITALS: BP 157/91
[2019-08-15 11:53] VITALS: BP 148/85
--- NOTE | 2019-08-15 13:32 | NUR ---
SHEKHAR NOTE/IA MEET WITH PATIENT IN ROOM. PER PATIENT, STATES HE IS INDEPENDENT WITH ADLS, LIVES WITH SPOUSE AND THEIR 4 MINOR CHILDREN, NO DME IN USE, NO HOME HEALTH OR PHYSICAL THERAPY IN USE, AND FEELS SAFE TO RETURN HOME ONCE DISCHARGED FROM HOSPITAL. Addendum: 08/15/19 at 1333 by JAVIER ROSAS RN CM Amended: Links added.
[2019-08-15 16:14] VITALS: BP 136/87
[2019-08-15 19:58] VITALS: BP 141/84
[2019-08-16 00:05] VITALS: BP 139/88
[2019-08-16] MEDS: MORPHINE SULFATE 4 MG/1ML SYG IV PRN ×6 (00:29→22:02)
[2019-08-16] MEDS: SODIUM CHLORIDE 0.9% 1000ML 1,000 ML IV SCH ×5 (03:07→23:24)
[2019-08-16 04:09] VITALS: BP 143/82
[2019-08-16 04:29] LABS: BASOPHILS % (AUTO) 0.2 % (0.0-5.0); EOSINOPHILS % (AUTO) 0.3 % (0.0-8.0); HEMATOCRIT 41.3 % (42-54); LYMPHOCYTES % (AUTO) 7.4 % (21.0-51.0); MEAN CORPUSCULAR HEMOGLOBIN 31.6 pg (27.0-33.0); MEAN CORPUSCULAR HGB CONC 34.6 g/dL (32.0-36.0); MEAN CORPUSCULAR VOLUME 91.2 fL (79-99); MONOCYTES % (AUTO) 9.5 % (3.0-13.0); PLATELET COUNT (AUTO) 348 K/uL (130-400); RED BLOOD CELL COUNT(AUTO) 4.53 MIL/uL (4.50-6.20); RED CELL DISTRIBUTION WIDTH 13.1 % (11.0-15.5); WHITE BLOOD COUNT (AUTO) 25.6 K/uL (4.8-10.8)
[2019-08-16 04:43] LABS: ALBUMIN 3.5 g/dL (3.5-5.0); CREATININE 0.9 mg/dL (0.5-1.5); MAGNESIUM 2.5 mg/dL (1.80-2.40); PHOSPHORUS 2.3 mg/dL (2.5-4.9); POTASSIUM 3.9 mmol/L (3.5-5.1); TOTAL PROTEIN, SERUM 6.6 g/dL (6.0-8.3)
[2019-08-16] MEDS: INSULIN HUMULIN R 100 UNIT/ML 3ML SQ SCH ×4 (06:51→21:00)
[2019-08-16 07:00] VITALS: BP 145/87
[2019-08-16] MEDS: FAMOTIDINE/PF 20 MG/2 ML VIAL IV SCH ×2 (08:36→22:01)
[2019-08-16] MEDS: ENOXAPARIN SODIUM 40 MG/0.4 ML SYRINGE SQ SCH (08:38)
[2019-08-16 11:00] VITALS: BP 136/90
[2019-08-16 16:02] VITALS: BP 154/96
[2019-08-16 19:48] VITALS: BP 146/94
[2019-08-17] VITALS (7 sets, daily range): BP systolic 123–152; BP diastolic 83–96
[2019-08-17] MEDS: MORPHINE SULFATE 4 MG/1ML SYG IV PRN ×2 (02:37→06:41)
[2019-08-17 04:04] LABS: BASOPHILS % (AUTO) 0.2 % (0.0-5.0); HEMATOCRIT 36.3 % (42-54); LYMPHOCYTES % (AUTO) 8.9 % (21.0-51.0); MEAN CORPUSCULAR HEMOGLOBIN 31.3 pg (27.0-33.0); MEAN CORPUSCULAR HGB CONC 34.4 g/dL (32.0-36.0); MONOCYTES % (AUTO) 9.1 % (3.0-13.0); NEUTROPHILS % (AUTO) 80.9 % (40.0-77.0); PLATELET COUNT (AUTO) 287 K/uL (130-400); RED BLOOD CELL COUNT(AUTO) 3.99 MIL/uL (4.50-6.20); RED CELL DISTRIBUTION WIDTH 13.1 % (11.0-15.5); WHITE BLOOD COUNT (AUTO) 22.2 K/uL (4.8-10.8)
[2019-08-17 04:30] LABS: ALBUMIN 2.9 g/dL (3.5-5.0); BILIRUBIN,TOTAL 1.1 mg/dL (0.2-1.0); CREATININE 0.7 mg/dL (0.5-1.5); PHOSPHORUS 1.5 mg/dL (2.5-4.9); POTASSIUM 3.3 mmol/L (3.5-5.1)
[2019-08-17 05:24] LABS: CRP QUANTITATIVE 234.2 mg/L (0.00-9.0)
[2019-08-17 05:39] LABS: ERYTHROCYTE SEDIMENTATION RATE 11 MM/HR (0-15)
[2019-08-17] MEDS: SODIUM CHLORIDE 0.9% 1000ML 1,000 ML IV SCH ×4 (05:45→19:20)
[2019-08-17] MEDS: INSULIN HUMULIN R 100 UNIT/ML 3ML SQ SCH ×4 (06:18→20:57)
[2019-08-17] MEDS: FAMOTIDINE/PF 20 MG/2 ML VIAL IV SCH ×2 (08:55→20:55)
[2019-08-17] MEDS: ENOXAPARIN SODIUM 40 MG/0.4 ML SYRINGE SQ SCH (08:56)
[2019-08-17] MEDS: ACETAMINOPHEN 325 MG TAB PO PRN ×2 (15:27→20:56)
[2019-08-17] MEDS: CEFTRIAXONE SODIUM 1 GM IVP SCH (15:27)
[2019-08-18] MEDS: SODIUM CHLORIDE 0.9% 1000ML 1,000 ML IV SCH ×5 (00:59→23:35)
[2019-08-18 04:00] VITALS: BP 142/92
[2019-08-18 05:09] LABS: BASOPHILS % (AUTO) 0.2 % (0.0-5.0); EOSINOPHILS % (AUTO) 0.2 % (0.0-8.0); HEMATOCRIT 35.3 % (42-54); LYMPHOCYTES % (AUTO) 14.5 % (21.0-51.0); MEAN CORPUSCULAR HEMOGLOBIN 31.6 pg (27.0-33.0); MEAN CORPUSCULAR HGB CONC 35.1 g/dL (32.0-36.0); MEAN CORPUSCULAR VOLUME 90.1 fL (79-99); MONOCYTES % (AUTO) 8.1 % (3.0-13.0); NEUTROPHILS % (AUTO) 76.7 % (40.0-77.0); PLATELET COUNT (AUTO) 297 K/uL (130-400); RED BLOOD CELL COUNT(AUTO) 3.92 MIL/uL (4.50-6.20); RED CELL DISTRIBUTION WIDTH 12.7 % (11.0-15.5); WHITE BLOOD COUNT (AUTO) 17.3 K/uL (4.8-10.8)
[2019-08-18 05:25] LABS: ALBUMIN 2.8 g/dL (3.5-5.0); BILIRUBIN,TOTAL 1.1 mg/dL (0.2-1.0); CREATININE 0.7 mg/dL (0.5-1.5); POTASSIUM 3.3 mmol/L (3.5-5.1); TOTAL PROTEIN, SERUM 6.3 g/dL (6.0-8.3)
[2019-08-18] MEDS: INSULIN HUMULIN R 100 UNIT/ML 3ML SQ SCH ×4 (06:12→20:52)
[2019-08-18] MEDS: POTASSIUM CHLORIDE 10MEQ/100ML 100 ML IV PRN ×2 (06:13→14:49)
[2019-08-18 07:30] VITALS: BP 148/77
[2019-08-18] MEDS: ENOXAPARIN SODIUM 40 MG/0.4 ML SYRINGE SQ SCH (08:41)
[2019-08-18] MEDS: FAMOTIDINE/PF 20 MG/2 ML VIAL IV SCH ×2 (08:41→20:59)
[2019-08-18 11:30] VITALS: BP 150/95
[2019-08-18] MEDS: CEFTRIAXONE SODIUM 1 GM IVP SCH (14:49)
[2019-08-18 15:30] VITALS: BP 147/83
[2019-08-18 20:21] VITALS: BP 151/93
[2019-08-18 23:23] VITALS: BP 150/83
[2019-08-19 03:31] VITALS: BP 145/80
[2019-08-19] MEDS: SODIUM CHLORIDE 0.9% 1000ML 1,000 ML IV SCH ×2 (04:48→10:50)
[2019-08-19 05:50] LABS: BASOPHILS % (AUTO) 0.3 % (0.0-5.0); EOSINOPHILS % (AUTO) 0.8 % (0.0-8.0); HEMATOCRIT 34.1 % (42-54); LYMPHOCYTES % (AUTO) 21.1 % (21.0-51.0); MEAN CORPUSCULAR HEMOGLOBIN 31.8 pg (27.0-33.0); MEAN CORPUSCULAR HGB CONC 35.5 g/dL (32.0-36.0); MEAN CORPUSCULAR VOLUME 89.5 fL (79-99); MONOCYTES % (AUTO) 10.7 % (3.0-13.0); NEUTROPHILS % (AUTO) 66.8 % (40.0-77.0); PLATELET COUNT (AUTO) 358 K/uL (130-400); RED BLOOD CELL COUNT(AUTO) 3.81 MIL/uL (4.50-6.20); RED CELL DISTRIBUTION WIDTH 12.5 % (11.0-15.5); WHITE BLOOD COUNT (AUTO) 13.7 K/uL (4.8-10.8)
[2019-08-19 06:03] LABS: ALBUMIN 2.9 g/dL (3.5-5.0); CREATININE 0.7 mg/dL (0.5-1.5); TOTAL PROTEIN, SERUM 6.1 g/dL (6.0-8.3)
[2019-08-19 06:09] LABS: POTASSIUM 2.9 mmol/L (3.5-5.1)
[2019-08-19] MEDS: POTASSIUM CHLORIDE 10MEQ/100ML 100 ML IV PRN ×2 (06:27→09:32)
[2019-08-19] MEDS: INSULIN HUMULIN R 100 UNIT/ML 3ML SQ SCH ×3 (06:39→16:30)
[2019-08-19 07:54] VITALS: BP 145/79
[2019-08-19] MEDS: FAMOTIDINE/PF 20 MG/2 ML VIAL IV SCH (09:34)
[2019-08-19] MEDS: ENOXAPARIN SODIUM 40 MG/0.4 ML SYRINGE SQ SCH (09:35)
[2019-08-19 11:22] VITALS: BP 131/86
[2019-08-19] MEDS ORDERED: POTASSIUM CHLORIDE 20 MEQ ERTAB PO ONE (13:42)
[2019-08-19] MEDS ORDERED: POTASSIUM CHLORIDE 20 MEQ ERTAB PO SCH (13:45)
[2019-08-19 15:18] VITALS: BP 146/90
[2019-08-19] MEDS: CEFTRIAXONE SODIUM 1 GM IVP SCH (16:06)
== END 2019-08-19 17:47 | disposition home or self-care (01) | DRG 440 ==
LOC: EDH 18:45 → EDHIP 21:24 → 4DH 08-15 07:47 → 4BH 08-15 07:49
PROVIDERS: ADMIT Internal Medicine; ATTEND Internal Medicine
DX: K85.90 Acute pancreatitis without necrosis or infection, unspecified (principal); E78.5 Hyperlipidemia, unspecified; E86.1 Hypovolemia; E11.9 Type 2 diabetes mellitus without complications; E87.6 Hypokalemia; G47.00 Insomnia, unspecified; I10 Essential (primary) hypertension; K59.00 Constipation, unspecified; K86.1 Other chronic pancreatitis; Z90.81 Acquired absence of spleen; Z82.3 Family history of stroke; Z82.0 Family history of epilepsy and other diseases of the nervous system; Z82.49 Family history of ischemic heart disease and other diseases of the circulatory system; Z83.3 Family history of diabetes mellitus; Z82.5 Family history of asthma and other chronic lower respiratory diseases
CPT/HCPCS: 36415; 71045; 74176; 80048; 80053; 80061; 81001; 82550; 82948; 83036; 83690; 83735; 84100; 84132; 84145; 84484; 85025; 85651; 86140; 87040; 93005; G0378; J0696; J1170; J1650; J1815; J2270; J2405; J3480; J3490; J7030